=== PATIENT | male | born 1945 | race Caucasian/White ===

== ENCOUNTER → 2016-06-16 | Outpatient (CLI) | payer MEDICARE, MEDICAID ==
[~2016-06-16] MED LIST: OMEP40CA34 PO
== END | disposition home or self-care (01) ==
LOC: RAD 11:34
PROVIDERS: ATTEND Neurological Surgery
DX: Z01.818 Encounter for other preprocedural examination (principal); M48.02 Spinal stenosis, cervical region; G95.89 Other specified diseases of spinal cord; G82.50 Quadriplegia, unspecified; J98.11 Atelectasis
CPT/HCPCS: 71010

== ENCOUNTER 2016-06-26 05:59 | Inpatient (IN) | payer MEDICARE, MEDICAID ==
[2016-06-26] VITALS (24 sets, daily range): BP systolic 59–180; BP diastolic 46–96
[~2016-06-26] VITALS: Ht 177.8 cm; Wt 110.2 kg
[2016-06-26] MEDS ORDERED: NORMAL SALINE 0.9% 10 ML SYR ONE ×2 (06:23→10:43)
[2016-06-26] MEDS ORDERED: GELATIN SPONGE,ABSORBABLE SZ 100 ONE ×3 (06:23→12:50)
[2016-06-26] MEDS ORDERED: THROMBIN (BOVINE) 5000 UNITS/VIAL TOP ONE ×2 (06:24→10:43)
[2016-06-26] MEDS ORDERED: LIDOCAINE HCL/EPINEPHRINE 0.5%-EPI 1:200,000 50 ML VIAL INFIL ONE ×2 (06:24→10:44)
[2016-06-26] MEDS ORDERED: BACITRACIN 50,000 UNITS/VIAL ONE ×2 (06:25→10:44)
[2016-06-26] MEDS ORDERED: LACTATED RINGERS 1,000 ML IV SCH (07:45)
[2016-06-26 08:33] LABS: GLUCOSE URINE NEGATIVE (NEGATIVE); KETONES URINE NEGATIVE (NEGATIVE); LEUKOCYTE ESTERASE URINE NEGATIVE (NEGATIVE); NITRITE URINE NEGATIVE (NEGATIVE); OCCULT BLOOD URINE NEGATIVE (NEGATIVE); PH URINE 5.5 (4.5-8.0); PROTEIN URINE NEGATIVE (NEGATIVE); SPECIFIC GRAVITY URINE 1.015 (1.005-1.030); UROBILINOGEN URINE 0.2 E.U./dL (0.2-1.0)
[2016-06-26 08:35] LABS: CLARITY URINE CLEAR (CLEAR); COLOR URINE YELLOW (YELLOW)
[2016-06-26 09:16] LABS: PARTIAL THROMBOPLASTIN TIME 29.4 sec (24.0-34.0); PROTHROMBIN TIME 10.6 sec
[2016-06-26] MEDS ORDERED: IPRATROPIUM/ALBUTEROL 0.5-3(2.5)MG/3ML NEB INH PRN (10:45)
[2016-06-26] MEDS ORDERED: DIPHENHYDRAMINE 50MG/ML VIAL IV PRN (10:45)
[2016-06-26] MEDS ORDERED: ONDANSETRON HCL 4MG/2ML VIAL IV PRN ×2 (10:45→12:15)
[2016-06-26] MEDS ORDERED: CLONIDINE 0.1MG TABLET PO PRN (10:45)
[2016-06-26] MEDS ORDERED: RIVA20TA PO (10:56)
[2016-06-26] MEDS ORDERED: FURO20TA4 PO (10:56)
[2016-06-26] MEDS ORDERED: DOXA4TAB3 PO (10:56)
[2016-06-26] MEDS ORDERED: SUCCINYLCHOLINE CHLORIDE 200MG/10ML VIAL IV ONE (11:37)
[2016-06-26] MEDS ORDERED: PROPOFOL 200MG/20ML VIAL IV ONE (11:37)
[2016-06-26] MEDS ORDERED: ROCURONIUM BROMIDE 10MG/ML VIAL 5ML IV ONE (11:37)
[2016-06-26] MEDS ORDERED: HYDROMORPHONE HCL/PF 2MG/ML (OR) ONE (11:49)
[2016-06-26] MEDS ORDERED: LABETALOL HCL 5MG/ML VIAL 20ML IV ONE (11:51)
[2016-06-26] MEDS ORDERED: DEXAMETHASONE 4MG/ML 1ML VIAL IV SCH (12:00)
[2016-06-26] MEDS ORDERED: LABETALOL HCL 20MG/4ML CARPUJECT IV PRN (12:15)
[2016-06-26] MEDS ORDERED: HYDROMORPHONE HCL/PF 2MG/ML CPJ IV PRN (12:15)
[2016-06-26] MEDS ORDERED: MEPERIDINE HCL/PF 25MG/ML CPJ IV PRN (12:15)
[2016-06-26] MEDS ORDERED: GLYCOPYRROLATE 0.2 MG/ML 2ML VIAL ONE (13:12)
[2016-06-26] MEDS ORDERED: NEOSTIGMINE METHYLSULFATE 1MG/ML 10 ML VIAL ONE (13:12)
[2016-06-26] MEDS ORDERED: CEFAZOLIN SODIUM 1000MG/VIAL IV SCH (14:00)
[2016-06-26] MEDS: MORPHINE SULFATE 2 MG/ML CPJ (NOT FOR IM USE) IV PRN (14:08)
[2016-06-26] MEDS ORDERED: ONDANSETRON INJ IV PRN (14:45)
[2016-06-26] MEDS ORDERED: NALOXONE INJ IV PRN (14:45)
[2016-06-26] MEDS ORDERED: DIPHENHYDRAMINE INJ IV PRN (14:45)
[2016-06-26] MEDS: HYDROMORPHONE PCA 10MG/50ML IV PRN (15:01)
[2016-06-26] MEDS ORDERED: DEXT 5%/LACTATED RINGERS 1,000 ML IV SCH (17:00)
[2016-06-26] MEDS ORDERED: PANTOPRAZOLE SODIUM 40 MG/VIAL IV NR (17:30)
[2016-06-26] MEDS: DEXAMETHASONE 4MG/ML 1ML VIAL IV SCH (17:53)
[2016-06-26] MEDS: CEFAZOLIN 1000MG PREMIX 50 ML IV SCH (22:39)
[2016-06-27] VITALS (46 sets, daily range): BP systolic 114–166; BP diastolic 50–99
[2016-06-27] MEDS: DEXAMETHASONE 4MG/ML 1ML VIAL IV SCH ×3 (00:52→12:50)
[2016-06-27] MEDS: HYDROMORPHONE PCA 10MG/50ML IV PRN (05:33)
[2016-06-27 05:42] LABS: HEMATOCRIT. 43.5 % (42.0-52.0); HEMOGLOBIN. 14.9 g/dL (14.0-18.0); MEAN CORPUSCULAR HEMOGLOBIN 32.8 pg (28.0-32.0); MEAN CORPUSCULAR HGB CONC 34.2 g/dL (31.0-37.0); MEAN CORPUSCULAR VOLUME 95.9 fL (80.0-94.0); MEAN PLATELET VOLUME 8.5 fl (7.4-10.4); PLATELET 206 x1000/uL (130-400); RED BLOOD CELL COUNT 4.53 mill/uL (4.7-6.1); RED CELL DISTRIBUTION WIDTH 13.8 % (11.6-14.6); WHITE BLOOD COUNT 17.8 x1000/uL (4.5-11.0)
[2016-06-27 05:49] LABS: DIFFERENTIAL COMMENT 1
[2016-06-27 06:01] LABS: ANION GAP 13; CALCIUM 8.1 mg/dL (8.5-10.1); CARBON DIOXIDE 25 mEq/L (21-32); CHLORIDE 105 mEq/L (98-107); INDEX HEMOLYSI 2 (1-3); INDEX ICTERIC 1 (1-4); INDEX LIPEMIC 1 (1-3); UREA NITROGEN BLOOD 20 mg/dL (7-21); eGFR > 60 mL/min (>60)
[2016-06-27] MEDS: CEFAZOLIN 1000MG PREMIX 50 ML IV SCH ×2 (06:10→12:50)
[2016-06-27] MEDS: PANTOPRAZOLE SODIUM 40 MG/VIAL IV SCH (09:04)
[2016-06-27 11:00] LABS: PLATELET ESTIMATE NORMAL; TOXIC VACUOLATION NN
[2016-06-27 11:42] LABS: HEMATOCRIT. 43.6 % (42.0-52.0); HEMOGLOBIN. 14.7 g/dL (14.0-18.0); MEAN CORPUSCULAR HEMOGLOBIN 32.4 pg (28.0-32.0); MEAN CORPUSCULAR HGB CONC 33.8 g/dL (31.0-37.0); MEAN CORPUSCULAR VOLUME 95.7 fL (80.0-94.0); MEAN PLATELET VOLUME 8.1 fl (7.4-10.4); PLATELET 216 x1000/uL (130-400); RED BLOOD CELL COUNT 4.55 mill/uL (4.7-6.1); WHITE BLOOD COUNT 18.4 x1000/uL (4.5-11.0)
[2016-06-27 11:44] LABS: DIFFERENTIAL COMMENT 1
[2016-06-27 12:09] LABS: ANION GAP 14; CALCIUM 8.3 mg/dL (8.5-10.1); CARBON DIOXIDE 26 mEq/L (21-32); CHLORIDE 105 mEq/L (98-107); INDEX HEMOLYSI 1 (1-3); INDEX ICTERIC 1 (1-4); INDEX LIPEMIC 1 (1-3); UREA NITROGEN BLOOD 17 mg/dL (7-21); eGFR > 60 mL/min (>60)
[2016-06-27 13:31] LABS: PLATELET ESTIMATE NORMAL
[2016-06-27] MEDS: AMIODARONE HCL 200 MG TABLET PO SCH (15:11)
[2016-06-27] MEDS ORDERED: LORAZEPAM 2MG/ML CPJ IV PRN (16:30)
[2016-06-27] MEDS ORDERED: DEXTROSE 50% WATER 50ML SYRINGE IV PRN (18:45)
[2016-06-27] MEDS: HYDROMORPHONE HCL/PF 2MG/ML CPJ IV PRN (19:22)
[2016-06-27] MEDS: BLOOD SUGAR DIAGNOSTIC STRIP TEST SCH (21:00)
[2016-06-27] MEDS: DILTIAZEM HCL 60MG TABLET PO SCH (22:44)
[2016-06-27] MEDS: INSULIN LISPRO 100 UNITS/ML SUBCUT SCH (22:44)
[2016-06-28] VITALS (44 sets, daily range): BP systolic 114–203; BP diastolic 51–97
[2016-06-28] MEDS: ACETAMINOPHEN 325MG TABLET PO PRN ×3 (02:44→15:50)
[2016-06-28] MEDS: BLOOD SUGAR DIAGNOSTIC STRIP TEST SCH ×4 (06:11→21:17)
[2016-06-28] MEDS: INSULIN LISPRO 100 UNITS/ML SUBCUT SCH ×4 (06:53→21:23)
[2016-06-28] MEDS: DILTIAZEM HCL 60MG TABLET PO SCH ×3 (07:20→21:18)
[2016-06-28] MEDS: PANTOPRAZOLE SODIUM 40 MG/VIAL IV SCH (09:10)
[2016-06-28] MEDS: AMIODARONE HCL 200 MG TABLET PO SCH (09:10)
[2016-06-28] MEDS: MORPHINE SULFATE 2 MG/ML CPJ (NOT FOR IM USE) IV PRN (19:06)
[2016-06-29] VITALS (7 sets, daily range): BP systolic 115–138; BP diastolic 65–73
[2016-06-29] MEDS: DILTIAZEM HCL 60MG TABLET PO SCH ×2 (05:37→14:00)
[2016-06-29] MEDS: HYDROCODONE/ACETAMINOPHEN 10/325MG TABLET PO PRN ×3 (05:45→19:29)
[2016-06-29] MEDS: BLOOD SUGAR DIAGNOSTIC STRIP TEST SCH ×3 (05:46→17:40)
[2016-06-29] MEDS: INSULIN LISPRO 100 UNITS/ML SUBCUT SCH ×3 (07:52→18:33)
[2016-06-29] MEDS: AMIODARONE HCL 200 MG TABLET PO SCH (09:00)
[2016-06-29] MEDS: PANTOPRAZOLE SODIUM 40 MG/VIAL IV SCH (09:20)
[2016-06-29] MEDS: HYDROMORPHONE HCL/PF 2MG/ML CPJ IV PRN (10:17)
[2016-06-30] MEDS ORDERED: AMIODARONE HCL 200 MG TABLET PO SCH (09:00)
== END 2016-06-29 20:10 | DRG 471 ==
LOC: OR 05:59 → MICUSO 06:00 → 7WST 06-28 22:45
PROVIDERS: ADMIT Internal Medicine; ATTEND Internal Medicine
PROC: 01N10ZZ Release Cervical Nerve, Open Approach (ICD-10-PCS; 2016-06-26)
PROC: 00NW0ZZ Release Cervical Spinal Cord, Open Approach (ICD-10-PCS; 2016-06-26)
PROC: 0RG2071 Fusion of 2 or more Cervical Vertebral Joints with Autologous Tissue Substitute, Posterior Approach, Posterior Column, Open Approach (ICD-10-PCS; principal; 2016-06-26 11:00)
DX: M48.02 Spinal stenosis, cervical region (principal); G82.50 Quadriplegia, unspecified; G95.9 Disease of spinal cord, unspecified; J84.9 Interstitial pulmonary disease, unspecified; G95.20 Unspecified cord compression; E11.9 Type 2 diabetes mellitus without complications; E66.9 Obesity, unspecified; I10 Essential (primary) hypertension; I48.0 Paroxysmal atrial fibrillation; I48.2 Chronic atrial fibrillation; K21.9 Gastro-esophageal reflux disease without esophagitis; K59.09 Other constipation; K64.9 Unspecified hemorrhoids; R26.9 Unspecified abnormalities of gait and mobility; R35.1 Nocturia; R45.1 Restlessness and agitation; M54.5 Low back pain; Z87.891 Personal history of nicotine dependence; Z79.2 Long term (current) use of antibiotics; Z79.899 Other long term (current) drug therapy; Z98.49 Cataract extraction status, unspecified eye; Z90.49 Acquired absence of other specified parts of digestive tract; Z90.79 Acquired absence of other genital organ(s)
CPT/HCPCS: 36415; 71010; 72040; 80048; 81003; 82962; 83036; 85025; 85610; 85730; 86850; 86900; 87040; 88304; 88311; 93005; 97116; 97162; 97166; 97530; A4216; C9113; J0330; J0690; J1100; J1170; J1200; J1815; J2270; J2704; J2710; J3490; J7120; J7121; L0172; A4315

== ENCOUNTER 2016-06-29 20:19 | Inpatient (IN) | payer MEDICARE, MEDICAID ==
[~2016-06-29] VITALS: Ht 177.8 cm; Wt 111.6 kg
[2016-06-29 20:00] VITALS: BP 120/69
[~2016-06-29 20:19] MED LIST changes: +DOXA4TAB3 PO; +FURO20TA4 PO; +RIVA20TA PO
[2016-06-29] MEDS ORDERED: DEXTROSE 50% WATER 50ML SYRINGE IV PRN (20:45)
[2016-06-29] MEDS ORDERED: CLONIDINE 0.1MG TABLET PO PRN (20:45)
[2016-06-29] MEDS ORDERED: ACETAMINOPHEN 325MG TABLET PO PRN (20:45)
[2016-06-29 21:00] VITALS: BP 120/69
[2016-06-29] MEDS: INSULIN LISPRO 100 UNITS/ML SUBCUT SCH (21:00)
[2016-06-29] MEDS: BLOOD SUGAR DIAGNOSTIC STRIP TEST SCH (21:42)
[2016-06-29] MEDS: DILTIAZEM HCL 60MG TABLET PO SCH (22:00)
[2016-06-29] MEDS ORDERED: DIPHENHYDRAMINE 50MG/ML VIAL IV PRN (22:15)
[2016-06-29] MEDS ORDERED: LORAZEPAM 2MG/ML CPJ IV PRN (22:15)
[2016-06-29] MEDS ORDERED: ONDANSETRON HCL 4MG/2ML VIAL IV PRN (22:15)
[2016-06-29] MEDS ORDERED: HYDROMORPHONE HCL/PF 2MG/ML CPJ IV PRN (22:15)
[2016-06-29] MEDS ORDERED: MORPHINE SULFATE 2 MG/ML CPJ (NOT FOR IM USE) IV PRN (22:15)
[2016-06-30] MEDS ORDERED: IPRATROPIUM/ALBUTEROL 0.5-3(2.5)MG/3ML NEB HHN SCH
[2016-06-30] MEDS ORDERED: IPRATROPIUM/ALBUTEROL 0.5-3(2.5)MG/3ML NEB HHN PRN (02:15)
[2016-06-30] MEDS: BLOOD SUGAR DIAGNOSTIC STRIP TEST SCH ×4 (06:44→21:33)
[2016-06-30] MEDS: DILTIAZEM HCL 60MG TABLET PO SCH ×3 (06:44→21:34)
[2016-06-30] MEDS: INSULIN LISPRO 100 UNITS/ML SUBCUT SCH ×4 (06:44→21:35)
[2016-06-30] MEDS: HYDROCODONE/ACETAMINOPHEN 10/325MG TABLET PO PRN ×2 (06:53→13:16)
[2016-06-30 08:00] VITALS: BP 136/85
[2016-06-30] MEDS: AMIODARONE HCL 200 MG TABLET PO SCH (08:21)
[2016-06-30] MEDS ORDERED: PANTOPRAZOLE SODIUM 40 MG/VIAL IV SCH (09:00)
[2016-06-30] MEDS: MAGNESIUM HYDROXIDE 400MG/5ML 30ML UDC PO PRN (10:56)
[2016-06-30] MEDS: DOCUSATE SODIUM 250MG CAPSULE PO SCH ×2 (10:56→16:53)
[2016-06-30] MEDS ORDERED: LIDOCAINE 5% PATCH TOP SCH (15:45)
[2016-06-30] MEDS: PANTOPRAZOLE 40MG DR TABLET PO SCH (15:45)
[2016-06-30] MEDS: LIDOCAINE 5% PATCH TOP SCH (16:54)
[2016-06-30 20:00] VITALS: BP 145/73
[2016-06-30] MEDS: BACLOFEN 10MG TABLET PO SCH (21:34)
[2016-07-01] MEDS: DILTIAZEM HCL 60MG TABLET PO SCH ×3 (06:00→21:34)
[2016-07-01] MEDS: BACLOFEN 10MG TABLET PO SCH ×3 (06:22→21:34)
[2016-07-01] MEDS: PANTOPRAZOLE 40MG DR TABLET PO SCH (06:22)
[2016-07-01] MEDS: HYDROCODONE/ACETAMINOPHEN 10/325MG TABLET PO PRN ×2 (06:26→13:14)
[2016-07-01 06:28] LABS: BASOPHILS % 0.5 % (0.0-2.0); EOSINOPHILS % 4.6 % (0.0-5.0); HEMATOCRIT. 41.8 % (42.0-52.0); HEMOGLOBIN. 14.4 g/dL (14.0-18.0); LYMPHOCYTES % 35.7 % (20.0-50.0); MEAN CORPUSCULAR HEMOGLOBIN 32.8 pg (28.0-32.0); MEAN CORPUSCULAR HGB CONC 34.4 g/dL (31.0-37.0); MEAN CORPUSCULAR VOLUME 95.1 fL (80.0-94.0); MEAN PLATELET VOLUME 7.8 fl (7.4-10.4); MONOCYTES % 8.6 % (2.0-8.0); NEUTROPHILS % 50.6 % (40.0-76.0); PLATELET 232 x1000/uL (130-400); RED BLOOD CELL COUNT 4.39 mill/uL (4.7-6.1); RED CELL DISTRIBUTION WIDTH 13.7 % (11.6-14.6); WHITE BLOOD COUNT 7.8 x1000/uL (4.5-11.0)
[2016-07-01] MEDS: BLOOD SUGAR DIAGNOSTIC STRIP TEST SCH ×4 (06:32→16:53)
[2016-07-01] MEDS: INSULIN LISPRO 100 UNITS/ML SUBCUT SCH ×4 (06:33→21:41)
[2016-07-01 07:09] LABS: ALANINE AMINOTRANSFERASE 42 IU/L (13-61); ALBUMIN 3.2 g/dL (3.4-5.0); ANION GAP 11; CALCIUM 8.3 mg/dL (8.5-10.1); CARBON DIOXIDE 27 mEq/L (21-32); CHLORIDE 104 mEq/L (98-107); INDEX HEMOLYSI 1 (1-3); INDEX ICTERIC 1 (1-4); INDEX LIPEMIC 1 (1-3); MAGNESIUM 2.2 mg/dL (1.8-2.4); PHOSPHORUS 2.9 mg/dL (2.5-4.9); UREA NITROGEN BLOOD 14 mg/dL (7-21); eGFR > 60 mL/min (>60)
[2016-07-01 07:59] VITALS: BP 140/63
[2016-07-01 08:00] VITALS: BP 125/78
[2016-07-01] MEDS: AMIODARONE HCL 200 MG TABLET PO SCH (08:02)
[2016-07-01] MEDS: DOCUSATE SODIUM 250MG CAPSULE PO SCH ×2 (08:02→16:50)
[2016-07-01] MEDS: LIDOCAINE 5% PATCH TOP SCH (08:03)
[2016-07-01 20:00] VITALS: BP 122/66
[2016-07-01] MEDS: RIVAROXABAN 20 MG TABLET PO SCH (21:33)
[2016-07-01] MEDS: GABAPENTIN 100MG CAPSULE PO SCH (21:33)
[2016-07-02] MEDS: DILTIAZEM HCL 60MG TABLET PO SCH ×3 (06:00→21:35)
[2016-07-02] MEDS: PANTOPRAZOLE 40MG DR TABLET PO SCH (06:37)
[2016-07-02] MEDS: BACLOFEN 10MG TABLET PO SCH ×3 (06:37→21:36)
[2016-07-02] MEDS: GABAPENTIN 100MG CAPSULE PO SCH ×3 (06:37→21:35)
[2016-07-02] MEDS: BLOOD SUGAR DIAGNOSTIC STRIP TEST SCH ×4 (06:37→21:34)
[2016-07-02] MEDS: INSULIN LISPRO 100 UNITS/ML SUBCUT SCH ×4 (06:38→21:00)
[2016-07-02 08:00] VITALS: BP 128/70
[2016-07-02] MEDS: AMIODARONE HCL 200 MG TABLET PO SCH (08:05)
[2016-07-02] MEDS: DOCUSATE SODIUM 250MG CAPSULE PO SCH ×2 (08:05→16:07)
[2016-07-02] MEDS: HYDROCODONE/ACETAMINOPHEN 10/325MG TABLET PO PRN ×2 (08:06→12:05)
[2016-07-02] MEDS: LIDOCAINE 5% PATCH TOP SCH (08:06)
[2016-07-02] MEDS: MAGNESIUM HYDROXIDE 400MG/5ML 30ML UDC PO PRN (13:47)
[2016-07-02] MEDS: RIVAROXABAN 20 MG TABLET PO SCH (16:07)
[2016-07-02 20:22] VITALS: BP 143/81
[2016-07-03] MEDS: DILTIAZEM HCL 60MG TABLET PO SCH ×3 (06:00→21:19)
[2016-07-03] MEDS: GABAPENTIN 100MG CAPSULE PO SCH ×3 (06:18→21:18)
[2016-07-03] MEDS: BACLOFEN 10MG TABLET PO SCH ×3 (06:18→21:18)
[2016-07-03] MEDS: BLOOD SUGAR DIAGNOSTIC STRIP TEST SCH ×4 (06:19→21:19)
[2016-07-03] MEDS: PANTOPRAZOLE 40MG DR TABLET PO SCH (06:20)
[2016-07-03] MEDS: INSULIN LISPRO 100 UNITS/ML SUBCUT SCH ×4 (06:20→21:25)
[2016-07-03 08:00] VITALS: BP 119/58
[2016-07-03] MEDS: DOCUSATE SODIUM 250MG CAPSULE PO SCH ×2 (08:15→16:46)
[2016-07-03] MEDS: AMIODARONE HCL 200 MG TABLET PO SCH (08:15)
[2016-07-03] MEDS: LIDOCAINE 5% PATCH TOP SCH (08:17)
[2016-07-03] MEDS: HYDROCODONE/ACETAMINOPHEN 10/325MG TABLET PO PRN (08:49)
[2016-07-03] MEDS ORDERED: HYDROCODONE/APAP 7.5/325MG 1 TAB TABLET PO PRN (09:15)
[2016-07-03] MEDS ORDERED: IPRATROPIUM/ALBUTEROL 0.5-3(2.5)MG/3ML NEB HHN PRN (09:15)
[2016-07-03 11:31] LABS: BASOPHILS % 0.5 % (0.0-2.0); EOSINOPHILS % 1.7 % (0.0-5.0); HEMATOCRIT. 43.3 % (42.0-52.0); LYMPHOCYTES % 28.3 % (20.0-50.0); MEAN CORPUSCULAR HEMOGLOBIN 32.8 pg (28.0-32.0); MEAN CORPUSCULAR HGB CONC 34.7 g/dL (31.0-37.0); MEAN CORPUSCULAR VOLUME 94.6 fL (80.0-94.0); MONOCYTES % 7.8 % (2.0-8.0); NEUTROPHILS % 61.7 % (40.0-76.0); PLATELET 237 x1000/uL (130-400); RED BLOOD CELL COUNT 4.57 mill/uL (4.7-6.1); RED CELL DISTRIBUTION WIDTH 13.6 % (11.6-14.6); WHITE BLOOD COUNT 8.2 x1000/uL (4.5-11.0)
[2016-07-03 11:42] LABS: ANION GAP 11; CALCIUM 8.7 mg/dL (8.5-10.1); CARBON DIOXIDE 28 mEq/L (21-32); CHLORIDE 101 mEq/L (98-107); INDEX HEMOLYSI 1 (1-3); INDEX ICTERIC 1 (1-4); INDEX LIPEMIC 1 (1-3); UREA NITROGEN BLOOD 17 mg/dL (7-21); eGFR > 60 mL/min (>60)
[2016-07-03] MEDS: MAGNESIUM HYDROXIDE 400MG/5ML 30ML UDC PO PRN (16:46)
[2016-07-03] MEDS: RIVAROXABAN 20 MG TABLET PO SCH (16:46)
[2016-07-03 20:00] VITALS: BP 139/85
[2016-07-03] MEDS ORDERED: LACTULOSE 20G/30ML UDC PO PRN (21:00)
[2016-07-04] MEDS: IPRATROPIUM/ALBUTEROL 0.5-3(2.5)MG/3ML NEB HHN SCH ×4 (01:29→20:58)
[2016-07-04] MEDS: GABAPENTIN 100MG CAPSULE PO SCH ×3 (06:39→21:11)
[2016-07-04] MEDS: DILTIAZEM HCL 60MG TABLET PO SCH ×3 (06:39→21:11)
[2016-07-04] MEDS: BACLOFEN 10MG TABLET PO SCH ×3 (06:39→21:11)
[2016-07-04] MEDS: MAGNESIUM HYDROXIDE 400MG/5ML 30ML UDC PO PRN (06:40)
[2016-07-04] MEDS: INSULIN LISPRO 100 UNITS/ML SUBCUT SCH ×4 (06:41→21:21)
[2016-07-04] MEDS: BLOOD SUGAR DIAGNOSTIC STRIP TEST SCH ×4 (06:41→21:11)
[2016-07-04] MEDS: BUDESONIDE 0.5MG/2ML NEB HHN SCH ×2 (07:33→20:58)
[2016-07-04 08:00] VITALS: BP 127/67
[2016-07-04] MEDS: DOCUSATE SODIUM 250MG CAPSULE PO SCH ×2 (08:08→16:41)
[2016-07-04] MEDS: LIDOCAINE 5% PATCH TOP SCH (08:08)
[2016-07-04] MEDS: FAMOTIDINE 20MG TABLET PO SCH ×2 (08:08→21:10)
[2016-07-04] MEDS: AMIODARONE HCL 200 MG TABLET PO SCH (08:12)
[2016-07-04] MEDS ORDERED: NA PHOS,M-B/NA PHOS,DI-BA ENEMA 118ML PR NR (12:00)
[2016-07-04] MEDS: RIVAROXABAN 20 MG TABLET PO SCH (16:41)
[2016-07-04 20:00] VITALS: BP 128/66
[2016-07-04] MEDS ORDERED: HYDROCODONE/ACETAMINOPHEN 10/325MG TABLET PO PRN (20:15)
[2016-07-04] MEDS ORDERED: HYDROCODONE/APAP 7.5/325MG 1 TAB TABLET PO PRN (20:15)
[2016-07-05] MEDS: IPRATROPIUM/ALBUTEROL 0.5-3(2.5)MG/3ML NEB HHN SCH ×4 (00:46→21:40)
[2016-07-05] MEDS: BACLOFEN 10MG TABLET PO SCH ×3 (05:22→22:03)
[2016-07-05] MEDS: GABAPENTIN 100MG CAPSULE PO SCH ×3 (05:22→22:03)
[2016-07-05] MEDS: DILTIAZEM HCL 60MG TABLET PO SCH ×3 (05:22→22:00)
[2016-07-05] MEDS: BLOOD SUGAR DIAGNOSTIC STRIP TEST SCH ×4 (06:24→21:00)
[2016-07-05] MEDS: INSULIN LISPRO 100 UNITS/ML SUBCUT SCH ×4 (06:46→22:17)
[2016-07-05] MEDS: BUDESONIDE 0.5MG/2ML NEB HHN SCH ×2 (07:57→21:40)
[2016-07-05 08:00] VITALS: BP 116/61
[2016-07-05] MEDS: FAMOTIDINE 20MG TABLET PO SCH ×2 (08:55→22:03)
[2016-07-05] MEDS: AMIODARONE HCL 200 MG TABLET PO SCH (08:55)
[2016-07-05] MEDS: DOCUSATE SODIUM 250MG CAPSULE PO SCH ×2 (08:55→17:05)
[2016-07-05] MEDS: LIDOCAINE 5% PATCH TOP SCH (08:56)
[2016-07-05] MEDS: RIVAROXABAN 20 MG TABLET PO SCH (17:05)
[2016-07-05 20:00] VITALS: BP 123/73
[2016-07-06] MEDS: IPRATROPIUM/ALBUTEROL 0.5-3(2.5)MG/3ML NEB HHN SCH ×4 (01:52→21:16)
[2016-07-06] MEDS: BACLOFEN 10MG TABLET PO SCH ×3 (05:51→21:27)
[2016-07-06] MEDS: GABAPENTIN 100MG CAPSULE PO SCH ×3 (05:51→21:27)
[2016-07-06] MEDS: DILTIAZEM HCL 60MG TABLET PO SCH ×3 (05:53→21:29)
[2016-07-06] MEDS: BLOOD SUGAR DIAGNOSTIC STRIP TEST SCH ×4 (05:54→20:56)
[2016-07-06] MEDS: INSULIN LISPRO 100 UNITS/ML SUBCUT SCH ×4 (06:46→21:28)
[2016-07-06] MEDS: BUDESONIDE 0.5MG/2ML NEB HHN SCH ×2 (07:38→21:15)
[2016-07-06 08:00] VITALS: BP 117/63
[2016-07-06] MEDS: LIDOCAINE 5% PATCH TOP SCH (08:26)
[2016-07-06] MEDS: FAMOTIDINE 20MG TABLET PO SCH ×2 (08:26→21:27)
[2016-07-06] MEDS: AMIODARONE HCL 200 MG TABLET PO SCH (08:26)
[2016-07-06] MEDS: DOCUSATE SODIUM 250MG CAPSULE PO SCH ×2 (08:26→17:55)
[2016-07-06] MEDS: MAGNESIUM HYDROXIDE 400MG/5ML 30ML UDC PO PRN (08:31)
[2016-07-06] MEDS ORDERED: BUDESONIDE 0.5MG/2ML NEB HHN SCH (09:00)
[2016-07-06 12:30] VITALS: BP 117/73
[2016-07-06] MEDS ORDERED: BISACODYL 5MG TABLET PO PRN (15:00)
[2016-07-06] MEDS: RIVAROXABAN 20 MG TABLET PO SCH (17:55)
[2016-07-06] MEDS ORDERED: LACTULOSE 20G/30ML UDC PO NR (18:30)
[2016-07-06 20:00] VITALS: BP 145/90
[2016-07-07] MEDS: IPRATROPIUM/ALBUTEROL 0.5-3(2.5)MG/3ML NEB HHN SCH ×3 (01:26→15:20)
[2016-07-07] MEDS: BACLOFEN 10MG TABLET PO SCH ×2 (05:33→13:06)
[2016-07-07] MEDS: GABAPENTIN 100MG CAPSULE PO SCH ×2 (05:33→13:06)
[2016-07-07] MEDS: DILTIAZEM HCL 60MG TABLET PO SCH ×2 (05:34→13:06)
[2016-07-07] MEDS: BLOOD SUGAR DIAGNOSTIC STRIP TEST SCH ×2 (06:23→11:15)
[2016-07-07] MEDS: INSULIN LISPRO 100 UNITS/ML SUBCUT SCH ×2 (07:32→13:07)
[2016-07-07 08:00] VITALS: BP 102/57
[2016-07-07] MEDS: DOCUSATE SODIUM 250MG CAPSULE PO SCH (08:17)
[2016-07-07] MEDS: AMIODARONE HCL 200 MG TABLET PO SCH (08:17)
[2016-07-07] MEDS: FAMOTIDINE 20MG TABLET PO SCH (08:17)
[2016-07-07] MEDS: LIDOCAINE 5% PATCH TOP SCH (08:20)
[2016-07-07] MEDS: BUDESONIDE 0.5MG/2ML NEB HHN SCH (10:01)
[2016-07-07 14:33] VITALS: BP 122/68
== END 2016-07-07 15:35 | disposition home health service (06) | DRG 552 ==
PROVIDERS: ADMIT Psychiatry & Neurology Neurology; ATTEND Internal Medicine
DX: M48.02 Spinal stenosis, cervical region (principal); G95.29 Other cord compression; I48.0 Paroxysmal atrial fibrillation; H91.90 Unspecified hearing loss, unspecified ear; K21.9 Gastro-esophageal reflux disease without esophagitis; I10 Essential (primary) hypertension; E11.9 Type 2 diabetes mellitus without complications; E66.9 Obesity, unspecified; F17.200 Nicotine dependence, unspecified, uncomplicated; M54.16 Radiculopathy, lumbar region; J44.9 Chronic obstructive pulmonary disease, unspecified; K59.09 Other constipation; K64.9 Unspecified hemorrhoids; M48.06 Spinal stenosis, lumbar region; R26.9 Unspecified abnormalities of gait and mobility; Z68.35 Body mass index [BMI] 35.0-35.9, adult; Z87.01 Personal history of pneumonia (recurrent); Z90.49 Acquired absence of other specified parts of digestive tract
CPT/HCPCS: 36415; 80048; 80053; 82962; 83735; 84100; 85025; 93970; 94640; 94664; 97110; 97116; 97162; 97166; 97530; 97535; C9113; J1815; J7620; J7626

== ENCOUNTER 2016-08-18 09:21 | Inpatient (IN) | payer MEDICARE, MEDICAID ==
[~2016-08-18] VITALS: Ht 185.4 cm; Wt 100.7 kg
[~2016-08-18 09:21] MED LIST changes: -DOXA4TAB3 PO; -FURO20TA4 PO; -OMEP40CA34 PO
[2016-08-18 10:18] LABS: EOSINOPHILS % 0.9 % (0.0-5.0); HEMATOCRIT. 37.2 % (42.0-52.0); HEMOGLOBIN. 12.9 g/dL (14.0-18.0); LYMPHOCYTES % 19.8 % (20.0-50.0); MEAN CORPUSCULAR HEMOGLOBIN 32.4 pg (28.0-32.0); MEAN CORPUSCULAR VOLUME 93.8 fL (80.0-94.0); MEAN PLATELET VOLUME 7.4 fl (7.4-10.4); MONOCYTES % 5.7 % (2.0-8.0); NEUTROPHILS % 72.6 % (40.0-76.0); PLATELET 309 x1000/uL (130-400); RED BLOOD CELL COUNT 3.97 mill/uL (4.7-6.1); RED CELL DISTRIBUTION WIDTH 13.4 % (11.6-14.6)
[2016-08-18 10:31] LABS: D-DIMER 1.89 mg/L FEU (<0.50); INR 1.1; PARTIAL THROMBOPLASTIN TIME 34.1 sec (24.0-34.0); PROTHROMBIN TIME 11.3 sec
[2016-08-18 10:35] LABS: CARBON DIOXIDE 31 mEq/L (21-32); CHLORIDE 104 mEq/L (98-107); TROPONIN I < 0.02 ng/mL (0.00-0.04)
[2016-08-18] MEDS ORDERED: SODIUM CHLORIDE 0.9% 1000ML BAG (SEPSIS BOLUS) IV ONE (10:45)
[2016-08-18] MEDS ORDERED: PIPERACILLIN/TAZ 3.375G PREMIX 50 ML IV ONE (10:45)
[2016-08-18 11:12] LABS: CLARITY URINE CLEAR (CLEAR); COLOR URINE YELLOW (YELLOW); GLUCOSE URINE NEGATIVE (NEGATIVE); KETONES URINE NEGATIVE (NEGATIVE); LEUKOCYTE ESTERASE URINE NEGATIVE (NEGATIVE); NITRITE URINE NEGATIVE (NEGATIVE); OCCULT BLOOD URINE NEGATIVE (NEGATIVE); PH URINE 7.5 (4.5-8.0); PROTEIN URINE NEGATIVE (NEGATIVE); SPECIFIC GRAVITY URINE 1.015 (1.005-1.030)
[2016-08-18 12:45] VITALS: BP 136/78
[2016-08-18 13:00] VITALS: BP 136/78
[2016-08-18] MEDS ORDERED: TAMS0.4C31 PO (13:47)
[2016-08-18] MEDS ORDERED: AMIODARONE PO (13:54)
[2016-08-18] MEDS ORDERED: CARI350T27 PO (13:54)
[2016-08-18] MEDS ORDERED: DOXA4TAB3 PO (13:54)
[2016-08-18] MEDS ORDERED: TRAM50TA3 PO (13:54)
[2016-08-18] MEDS ORDERED: FAMO20TA8 PO (13:54)
[2016-08-18] MEDS ORDERED: FURO20TA4 PO (13:54)
[2016-08-18] MEDS ORDERED: RIVA20TA PO (13:54)
[2016-08-18] MEDS ORDERED: ACETAMINOPHEN 325MG TABLET PO PRN (14:45)
[2016-08-18] MEDS ORDERED: DIPHENHYDRAMINE 50MG/ML VIAL IV PRN (14:45)
[2016-08-18] MEDS ORDERED: ONDANSETRON HCL 4MG/2ML VIAL IV PRN (14:45)
[2016-08-18] MEDS ORDERED: IPRATROPIUM/ALBUTEROL 0.5-3(2.5)MG/3ML NEB INH PRN (14:45)
[2016-08-18] MEDS ORDERED: CLONIDINE 0.1MG TABLET PO PRN (14:45)
[2016-08-18] MEDS ORDERED: MAGNESIUM/ALUMINUM HYDROXIDE/SIMETHICONE 30ML UDC PO PRN (14:45)
[2016-08-18] MEDS: METHYLPREDNISOLONE SOD SUCC 40 MG/ML VIAL IV SCH ×2 (15:12→22:05)
[2016-08-18 16:27] VITALS: BP 143/87
[2016-08-18] MEDS: RIVAROXABAN 20 MG TABLET PO SCH (16:36)
[2016-08-18] MEDS: LEVOFLOXACIN 500MG PREMIX 100 ML IV SCH (16:36)
[2016-08-18] MEDS ORDERED: TRAMADOL 50MG TABLET PO SCH (17:00)
[2016-08-18] MEDS ORDERED: DEXTROSE 50% WATER 50ML SYRINGE IV PRN (19:45)
[2016-08-18] MEDS ORDERED: LORAZEPAM 1MG TABLET PO PRN (19:45)
[2016-08-18 20:00] VITALS: BP 123/69
[2016-08-18] MEDS: OMEPRAZOLE 20MG CAPSULE EXTENDED RELEASE PO SCH (20:28)
[2016-08-18] MEDS: BLOOD SUGAR DIAGNOSTIC STRIP TEST SCH (20:34)
[2016-08-18] MEDS: BUDESONIDE 0.5MG/2ML NEB HHN SCH (20:39)
[2016-08-18] MEDS: IPRATROPIUM/ALBUTEROL 0.5-3(2.5)MG/3ML NEB HHN SCH (20:39)
[2016-08-18] MEDS: DILTIAZEM HCL 60MG TABLET PO SCH (22:00)
[2016-08-18] MEDS: SODIUM CHLORIDE 0.9% INJ 3ML FLUSH IVF SCH (22:05)
[2016-08-18] MEDS: INSULIN LISPRO 100 UNITS/ML SUBCUT SCH (22:10)
[2016-08-18] MEDS: INSULIN DETEMIR UD 100 UNITS/ML SYR SUBCUT SCH (22:10)
[2016-08-19] VITALS: BP 130/78
[2016-08-19] MEDS: IPRATROPIUM/ALBUTEROL 0.5-3(2.5)MG/3ML NEB HHN SCH ×4 (00:43→20:17)
[2016-08-19 04:00] VITALS: BP 110/77
[2016-08-19] MEDS: METHYLPREDNISOLONE SOD SUCC 40 MG/ML VIAL IV SCH ×3 (05:56→21:11)
[2016-08-19] MEDS: SODIUM CHLORIDE 0.9% INJ 3ML FLUSH IVF SCH ×3 (05:57→21:11)
[2016-08-19] MEDS: BLOOD SUGAR DIAGNOSTIC STRIP TEST SCH ×4 (05:57→21:18)
[2016-08-19] MEDS: DILTIAZEM HCL 60MG TABLET PO SCH ×3 (05:57→21:11)
[2016-08-19] MEDS: METFORMIN HCL 500MG TABLET PO SCH ×2 (06:38→17:37)
[2016-08-19] MEDS: INSULIN LISPRO 100 UNITS/ML SUBCUT SCH ×4 (06:40→21:18)
[2016-08-19] MEDS: BUDESONIDE 0.5MG/2ML NEB HHN SCH ×2 (07:58→20:17)
[2016-08-19 08:00] VITALS: BP 132/67
[2016-08-19] MEDS: CARISOPRODOL 350 MG TABLET PO SCH (09:48)
[2016-08-19] MEDS: DOXAZOSIN MESYLATE 4MG TABLET PO SCH (09:48)
[2016-08-19] MEDS: FUROSEMIDE 20MG TABLET PO SCH (09:48)
[2016-08-19] MEDS: TAMSULOSIN HCL 0.4MG SR CAPSULE PO SCH (09:48)
[2016-08-19] MEDS: AMIODARONE HCL 200 MG TABLET PO SCH (09:48)
[2016-08-19 12:00] VITALS: BP 110/64
[2016-08-19 16:00] VITALS: BP 115/61
[2016-08-19] MEDS ORDERED: TRAMADOL 50MG TABLET PO PRN (17:00)
[2016-08-19] MEDS: LEVOFLOXACIN 500MG PREMIX 100 ML IV SCH (17:37)
[2016-08-19] MEDS: RIVAROXABAN 20 MG TABLET PO SCH (17:37)
[2016-08-19 20:00] VITALS: BP 116/60
[2016-08-19] MEDS: OMEPRAZOLE 20MG CAPSULE EXTENDED RELEASE PO SCH (21:11)
[2016-08-19] MEDS: INSULIN DETEMIR UD 100 UNITS/ML SYR SUBCUT SCH (21:18)
[2016-08-20] VITALS: BP 108/45
[2016-08-20] MEDS: IPRATROPIUM/ALBUTEROL 0.5-3(2.5)MG/3ML NEB HHN SCH ×3 (02:07→15:00)
[2016-08-20 04:00] VITALS: BP 116/67
[2016-08-20 05:55] LABS: HEMATOCRIT. 36.6 % (42.0-52.0); HEMOGLOBIN. 12.7 g/dL (14.0-18.0); MEAN CORPUSCULAR HEMOGLOBIN 32.5 pg (28.0-32.0); MEAN CORPUSCULAR VOLUME 93.7 fL (80.0-94.0); PLATELET 284 x1000/uL (130-400); RED BLOOD CELL COUNT 3.91 mill/uL (4.7-6.1); RED CELL DISTRIBUTION WIDTH 13.4 % (11.6-14.6)
[2016-08-20] MEDS: METHYLPREDNISOLONE SOD SUCC 40 MG/ML VIAL IV SCH ×2 (06:14→13:28)
[2016-08-20] MEDS: DILTIAZEM HCL 60MG TABLET PO SCH (06:14)
[2016-08-20] MEDS: BLOOD SUGAR DIAGNOSTIC STRIP TEST SCH ×2 (06:14→11:51)
[2016-08-20] MEDS: SODIUM CHLORIDE 0.9% INJ 3ML FLUSH IVF SCH ×2 (06:14→13:51)
[2016-08-20] MEDS: INSULIN LISPRO 100 UNITS/ML SUBCUT SCH ×2 (06:18→12:46)
[2016-08-20 06:27] LABS: CARBON DIOXIDE 27 mEq/L (21-32); CHLORIDE 104 mEq/L (98-107)
[2016-08-20 08:00] VITALS: BP 111/70
[2016-08-20 08:27] LABS: PLATELET ESTIMATE NORMAL
[2016-08-20] MEDS: FUROSEMIDE 20MG TABLET PO SCH (09:17)
[2016-08-20] MEDS: DOXAZOSIN MESYLATE 4MG TABLET PO SCH (09:17)
[2016-08-20] MEDS: CARISOPRODOL 350 MG TABLET PO SCH (09:17)
[2016-08-20] MEDS: METFORMIN HCL 500MG TABLET PO SCH (09:17)
[2016-08-20] MEDS: TAMSULOSIN HCL 0.4MG SR CAPSULE PO SCH (09:17)
[2016-08-20] MEDS: AMIODARONE HCL 200 MG TABLET PO SCH (09:17)
[2016-08-20] MEDS: BUDESONIDE 0.5MG/2ML NEB HHN SCH (09:25)
[2016-08-20 11:53] VITALS: BP 110/60
[2016-08-20 15:04] VITALS: BP 110/60
== END 2016-08-20 15:15 | disposition home or self-care (01) | DRG 189 ==
LOC: ER 10:13 → 5WST 11:05 → EDBEDREQ 11:12 → ENRESERV 11:42
PROVIDERS: ADMIT Internal Medicine; ATTEND Internal Medicine
DX: J96.00 Acute respiratory failure, unspecified whether with hypoxia or hypercapnia (principal); J18.9 Pneumonia, unspecified organism; J44.0 Chronic obstructive pulmonary disease with (acute) lower respiratory infection; J44.1 Chronic obstructive pulmonary disease with (acute) exacerbation; I48.0 Paroxysmal atrial fibrillation; I10 Essential (primary) hypertension; E11.9 Type 2 diabetes mellitus without complications; K21.9 Gastro-esophageal reflux disease without esophagitis; H43.393 Other vitreous opacities, bilateral; K59.09 Other constipation; K64.9 Unspecified hemorrhoids; Z79.899 Other long term (current) drug therapy; Z87.891 Personal history of nicotine dependence; Z82.49 Family history of ischemic heart disease and other diseases of the circulatory system
CPT/HCPCS: 36415; 71010; 80048; 80053; 81003; 82962; 83605; 83735; 83880; 84484; 85025; 85379; 85610; 85730; 87040; 93005; 94640; 94664; 96361; 96365; 99291; J1815; J1956; J2543; J2920; J7030; J7620; J7626

== ENCOUNTER 2016-08-24 21:02 | Emergency (ER) | payer MEDICARE, MEDICAID ==
[~2016-08-24] VITALS: Ht 175.3 cm; Wt 107.0 kg
[~2016-08-24 21:02] MED LIST changes: +AMIODARONE PO; +CARI350T27 PO; +DOXA4TAB3 PO; +FAMO20TA8 PO; +FURO20TA4 PO; +IOHEXOL-350 100 ML BOTTLE ONE; +SODIUM CHLORIDE 0.9% 10ML VIAL ONE; +TAMS0.4C31 PO; +TRAM50TA3 PO
[2016-08-24] MEDS ORDERED: SODIUM CHLORIDE 0.9% 1,000 ML IV ONE (22:00)
[2016-08-24 22:11] LABS: HEMATOCRIT. 40.3 % (42.0-52.0); HEMOGLOBIN. 13.8 g/dL (14.0-18.0); MEAN CORPUSCULAR VOLUME 93.2 fL (80.0-94.0); PLATELET 212 x1000/uL (130-400); RED BLOOD CELL COUNT 4.32 mill/uL (4.7-6.1); RED CELL DISTRIBUTION WIDTH 13.6 % (11.6-14.6)
[2016-08-24 22:18] LABS: INR 1.1; PROTHROMBIN TIME 10.9 sec
[2016-08-24 22:26] LABS: CARBON DIOXIDE 29 mEq/L (21-32); CHLORIDE 103 mEq/L (98-107); TROPONIN I < 0.02 ng/mL (0.00-0.04)
[2016-08-24 22:26] LABS: CLARITY URINE CLEAR (CLEAR); COLOR URINE YELLOW (YELLOW); KETONES URINE NEGATIVE (NEGATIVE); LEUKOCYTE ESTERASE URINE NEGATIVE (NEGATIVE); NITRITE URINE NEGATIVE (NEGATIVE); OCCULT BLOOD URINE NEGATIVE (NEGATIVE); PROTEIN URINE NEGATIVE (NEGATIVE); SPECIFIC GRAVITY URINE 1.006 (1.005-1.030); UROBILINOGEN URINE 0.2 E.U./dL (0.2-1.0)
[2016-08-24 22:36] LABS: ATYPICAL LYMPHOCYTES 2; PLATELET ESTIMATE NORMAL
[2016-08-25 02:51] VITALS: BP 147/66
== END 2016-08-25 02:53 | disposition home or self-care (01) ==
LOC: ER 21:02
DX: J18.9 Pneumonia, unspecified organism (principal); R59.1 Generalized enlarged lymph nodes; I51.9 Heart disease, unspecified; Z87.891 Personal history of nicotine dependence; Z79.899 Other long term (current) drug therapy
CPT/HCPCS: 36415; 71275; 74174; 80053; 81003; 83605; 84484; 85025; 85610; 87040; 93005; 96360; 96361; 99285; A4216; J7030; Q9967

== ENCOUNTER → 2016-11-09 | Outpatient (CLI) | payer MEDICARE, MEDICAID ==
[~2016-11-09] MED LIST changes: -IOHEXOL-350 100 ML BOTTLE ONE; -SODIUM CHLORIDE 0.9% 10ML VIAL ONE
== END | disposition home or self-care (01) ==
LOC: MRI 08:08
PROVIDERS: ATTEND Neurological Surgery
DX: M47.812 Spondylosis without myelopathy or radiculopathy, cervical region (principal); M48.02 Spinal stenosis, cervical region; M47.816 Spondylosis without myelopathy or radiculopathy, lumbar region; M48.06 Spinal stenosis, lumbar region; M41.86 Other forms of scoliosis, lumbar region
CPT/HCPCS: 72141; 72148

== ENCOUNTER 2018-03-14 10:47 | Inpatient (IN) | payer MEDICARE, MEDICAID ==
[~2018-03-14] VITALS: Ht 195.6 cm; Wt 101.6 kg
[2018-03-14 12:29] LABS: BASOPHILS % 0.5 % (0.0-2.0); EOSINOPHILS % 1.7 % (0.0-5.0); HEMATOCRIT. 40.3 % (42.0-52.0); HEMOGLOBIN. 13.6 g/dL (14.0-18.0); LYMPHOCYTES % 19.7 % (20.0-50.0); MEAN CORPUSCULAR HEMOGLOBIN 31.6 pg (28.0-32.0); MEAN CORPUSCULAR VOLUME 93.9 fL (80.0-94.0); MEAN PLATELET VOLUME 7.8 fl (7.4-10.4); MONOCYTES % 5.8 % (2.0-8.0); NEUTROPHILS % 72.3 % (40.0-76.0); PLATELET 255 x1000/uL (130-400); RED BLOOD CELL COUNT 4.29 mill/uL (4.7-6.1); RED CELL DISTRIBUTION WIDTH 15.7 % (11.6-14.6)
[2018-03-14 12:35] LABS: CHLORIDE 104 mEq/L (98-107)
[2018-03-14 13:05] LABS: CLARITY URINE CLEAR (CLEAR); COLOR URINE YELLOW (YELLOW); KETONES URINE TRACE (NEGATIVE); LEUKOCYTE ESTERASE URINE NEGATIVE (NEGATIVE); NITRITE URINE NEGATIVE (NEGATIVE); OCCULT BLOOD URINE NEGATIVE (NEGATIVE); PH URINE 5.5 (4.5-8.0); PROTEIN URINE NEGATIVE (NEGATIVE); SPECIFIC GRAVITY URINE 1.023 (1.005-1.030)
[2018-03-14] MEDS ORDERED: IOHEXOL-350 100 ML BOTTLE ONE (13:39)
[2018-03-14] MEDS ORDERED: SODIUM CHLORIDE 0.9% 1,000 ML IV ONE (14:19)
[2018-03-14] MEDS ORDERED: ALBUTEROL (0.083%) 2.5MG/3ML NEB HHN NR (14:19)
[2018-03-14] MEDS ORDERED: METHYLPREDNISOLONE SOD SUCC 125 MG/2 ML VIAL IV NR (14:19)
[2018-03-14] MEDS ORDERED: IPRATROPIUM BROMIDE (0.02%) 0.5MG/2.5ML NEB HHN NR (14:19)
[2018-03-14] MEDS ORDERED: VANCOMYCIN 1 G PREMIX 200 ML IV NR (14:30)
[2018-03-14] MEDS ORDERED: FUROSEMIDE 40MG/4ML VIAL IVP NR (14:30)
[2018-03-14] MEDS ORDERED: LEVOFLOXACIN 750MG PREMIX 150 ML IV NR (14:30)
[2018-03-14] MEDS ORDERED: PIPERACILLIN/TAZ 3.375G PREMIX 50 ML IV NR (14:30)
[2018-03-14 14:37] LABS: INR 1.2; PROTHROMBIN TIME 11.9 sec (9.1-11.1)
[2018-03-14 17:00] VITALS: BP 110/71
[2018-03-14] MEDS ORDERED: LORAZEPAM 2MG/ML CPJ IV PRN (18:15)
[2018-03-14] MEDS ORDERED: ONDANSETRON HCL 4MG/2ML INJ IV PRN (18:15)
[2018-03-14] MEDS ORDERED: MAGNESIUM/ALUMINUM HYDROXIDE/SIMETHICONE 30ML UDC PO PRN (18:15)
[2018-03-14] MEDS ORDERED: DIPHENHYDRAMINE 50MG/ML VIAL IV PRN (18:15)
[2018-03-14] MEDS ORDERED: HYDROCODONE/ACETAMINOPHEN 10/325MG TABLET PO PRN (18:15)
[2018-03-14] MEDS ORDERED: IPRATROPIUM/ALBUTEROL 0.5-3(2.5)MG/3ML NEB INH PRN (18:15)
[2018-03-14] MEDS ORDERED: HYDROMORPHONE HCL/PF 2MG/ML CPJ IV PRN (18:15)
[2018-03-14] MEDS ORDERED: GUAIFENESIN 200MG/10ML SUGAR FREE UDC PO PRN (18:15)
[2018-03-14] MEDS ORDERED: HYDRALAZINE 20MG/ML VIAL IV PRN (18:15)
[2018-03-14] MEDS ORDERED: VANCOMYCIN 1 G PREMIX 200 ML IV SCH (18:15)
[2018-03-14] MEDS ORDERED: CLONIDINE 0.1MG TABLET PO PRN (18:15)
[2018-03-14 18:51] VITALS: BP 110/71
[2018-03-14] MEDS ORDERED: ENOXAPARIN 40MG/0.4ML SYR SUBCUT SCH (21:00)
[2018-03-14] MEDS ORDERED: VANCOMYCIN 2,000 MG in DEXT 5% WATER 500 ML IV NR (21:00)
[2018-03-14] MEDS ORDERED: ERYTHROMYCIN BASE 0.5% OPHTH OINT 3.5GM BOTHEYE ONE (22:00)
[2018-03-14] MEDS: PIPERACILLIN/TAZ 3.375G PREMIX 50 ML IV SCH (22:27)
[2018-03-14] MEDS: SODIUM CHLORIDE 0.9% INJ 3ML FLUSH IVF SCH (22:29)
[2018-03-15] VITALS: BP 110/73
[2018-03-15 01:19] LABS: CREATINE KINASE 100 IU/L (39-308)
[2018-03-15 01:25] LABS: CREATINE KINASE MB FRACTION 1.7 ng/mL (0.5-3.6)
[2018-03-15 04:00] VITALS: BP 111/71
[2018-03-15] MEDS: PIPERACILLIN/TAZ 3.375G PREMIX 50 ML IV SCH ×3 (06:30→21:41)
[2018-03-15] MEDS: SODIUM CHLORIDE 0.9% INJ 3ML FLUSH IVF SCH ×3 (06:33→21:43)
[2018-03-15 07:09] LABS: BASOPHILS % 0.2 % (0.0-2.0); HEMATOCRIT. 40.2 % (42.0-52.0); HEMOGLOBIN. 13.5 g/dL (14.0-18.0); LYMPHOCYTES % 10.9 % (20.0-50.0); MEAN CORPUSCULAR HEMOGLOBIN 31.3 pg (28.0-32.0); MONOCYTES % 1.9 % (2.0-8.0); PLATELET 268 x1000/uL (130-400); RED BLOOD CELL COUNT 4.32 mill/uL (4.7-6.1); RED CELL DISTRIBUTION WIDTH 15.2 % (11.6-14.6)
[2018-03-15 07:23] LABS: CHLORIDE 100 mEq/L (98-107)
[2018-03-15 07:32] LABS: CREATINE KINASE 99 IU/L (39-308)
[2018-03-15 07:34] LABS: CREATINE KINASE MB FRACTION 2.3 ng/mL (0.5-3.6)
[2018-03-15 08:00] VITALS: BP 111/70
[2018-03-15] MEDS ORDERED: VANCOMYCIN 1250MG in DEXTROSE 5% WATER 250ML IV SCH (09:00)
[2018-03-15] MEDS: FUROSEMIDE 40MG/4ML VIAL IV SCH (09:23)
[2018-03-15] MEDS: ASPIRIN 81MG EC TABLET PO SCH (09:24)
[2018-03-15 10:33] LABS: T4 FREE 0.88 ng/dL (0.76-1.46)
[2018-03-15 12:00] VITALS: BP 112/72
[2018-03-15] MEDS ORDERED: ATOR10TA69 MT (12:09)
[2018-03-15] MEDS ORDERED: OMEP40CA34 PO (12:09)
[2018-03-15] MEDS ORDERED: XAR15 MT (12:09)
[2018-03-15] MEDS ORDERED: TRAZ-213 MT (12:09)
[2018-03-15] MEDS ORDERED: AZEL205. BOTHNSTRLS (12:09)
[2018-03-15] MEDS ORDERED: TRAM150C25 MT (12:09)
[2018-03-15] MEDS ORDERED: PREG300C MT (12:09)
[2018-03-15] MEDS ORDERED: SERT20OR6 PO (12:09)
[2018-03-15] MEDS ORDERED: LEVOFLOXACIN 500MG PREMIX 100 ML IV SCH (15:00)
[2018-03-15] MEDS: IPRATROPIUM/ALBUTEROL 0.5-3(2.5)MG/3ML NEB HHN SCH ×3 (15:34→23:53)
[2018-03-15 16:00] VITALS: BP 109/69
[2018-03-15] MEDS ORDERED: AZELASTINE HCL BOTHNSTRLS SCH (17:00)
[2018-03-15] MEDS ORDERED: TRAMADOL HCL MT PRN (17:00)
[2018-03-15] MEDS ORDERED: MEDICATION NOT ON FORMULARY EA (Pregabalin (Lyrica) 1 CAP) MT SCH (17:00)
[2018-03-15] MEDS: PREGABALIN 75MG CAPSULE PO SCH (18:19)
[2018-03-15] MEDS: RIVAROXABAN 15 MG TABLET PO SCH (18:19)
[2018-03-15] MEDS: PREDNISOLONE ACETATE 1% OPHTH DROPS 1ML BOTHEYE SCH (18:19)
[2018-03-15] MEDS: BUDESONIDE 0.5MG/2ML NEB HHN SCH (19:50)
[2018-03-15 20:38] VITALS: BP 104/65
[2018-03-15] MEDS ORDERED: TRAZODONE HCL MT SCH (21:00)
[2018-03-15] MEDS ORDERED: METHYLPREDNISOLONE SOD SUCC 125 MG/2 ML VIAL IV SCH (21:00)
[2018-03-15] MEDS: NEO/POLYMYX B SULF/DEXAMETH OPHTH OINT 3.5GM BOTHEYE SCH (21:40)
[2018-03-15] MEDS: TRAZODONE HCL 100MG TABLET PO SCH (21:41)
[2018-03-15] MEDS: AZELASTINE HCL 137MCG/SPRAY NASAL PUMP BOTHNSTRLS SCH (21:41)
[2018-03-15] MEDS: GUAIFENESIN 600MG ER TABLET PO SCH (21:41)
[2018-03-15] MEDS: ATORVASTATIN CALCIUM 10MG TABLET PO SCH (21:42)
[2018-03-16] VITALS (7 sets, daily range): BP systolic 92–124; BP diastolic 45–76
[2018-03-16] MEDS: PREDNISOLONE ACETATE 1% OPHTH DROPS 1ML BOTHEYE SCH ×4 (00:16→18:03)
[2018-03-16] MEDS: IPRATROPIUM/ALBUTEROL 0.5-3(2.5)MG/3ML NEB HHN SCH ×3 (04:36→20:41)
[2018-03-16] MEDS: SODIUM CHLORIDE 0.9% INJ 3ML FLUSH IVF SCH ×3 (05:27→21:49)
[2018-03-16] MEDS: NEO/POLYMYX B SULF/DEXAMETH OPHTH OINT 3.5GM BOTHEYE SCH ×3 (05:27→21:50)
[2018-03-16] MEDS: PIPERACILLIN/TAZ 3.375G PREMIX 50 ML IV SCH ×3 (05:27→21:49)
[2018-03-16 07:33] LABS: CHLORIDE 99 mEq/L (98-107)
[2018-03-16] MEDS: OMEPRAZOLE 20MG CAPSULE EXTENDED RELEASE PO SCH (08:54)
[2018-03-16] MEDS: FUROSEMIDE 40MG/4ML VIAL IV SCH (08:54)
[2018-03-16] MEDS: ASPIRIN 81MG EC TABLET PO SCH (08:55)
[2018-03-16] MEDS: GUAIFENESIN 600MG ER TABLET PO SCH ×2 (08:55→21:49)
[2018-03-16] MEDS: PREGABALIN 75MG CAPSULE PO SCH ×2 (08:55→18:03)
[2018-03-16] MEDS: SERTRALINE HCL 50MG TABLET PO SCH (08:55)
[2018-03-16] MEDS: AZELASTINE HCL 137MCG/SPRAY NASAL PUMP BOTHNSTRLS SCH ×2 (08:56→18:03)
[2018-03-16] MEDS ORDERED: MEDICATION NOT ON FORMULARY EA (Omeprazole 40 MG) PO SCH (09:00)
[2018-03-16] MEDS ORDERED: SERTRALINE HCL 50 MG PO SCH (09:00)
[2018-03-16] MEDS: BUDESONIDE 0.5MG/2ML NEB HHN SCH ×2 (09:48→20:41)
[2018-03-16] MEDS ORDERED: DEXTROSE 50% WATER 50ML SYRINGE IV PRN (12:15)
[2018-03-16] MEDS: INSULIN LISPRO 100 UNITS/ML SUBCUT SCH ×3 (12:35→22:04)
[2018-03-16] MEDS: BLOOD SUGAR DIAGNOSTIC STRIP TEST SCH ×3 (12:36→21:50)
[2018-03-16] MEDS: INSULIN GLARGINE UD 100 UNITS/ML SYR SUBCUT SCH (14:38)
[2018-03-16] MEDS: RIVAROXABAN 15 MG TABLET PO SCH (18:03)
[2018-03-16] MEDS: ATORVASTATIN CALCIUM 10MG TABLET PO SCH (21:49)
[2018-03-16] MEDS: TRAZODONE HCL 100MG TABLET PO SCH (21:49)
[2018-03-17] VITALS: BP 111/63
[2018-03-17] MEDS: IPRATROPIUM/ALBUTEROL 0.5-3(2.5)MG/3ML NEB HHN SCH ×6 (00:33→19:58)
[2018-03-17] MEDS: PREDNISOLONE ACETATE 1% OPHTH DROPS 1ML BOTHEYE SCH ×4 (00:42→17:15)
[2018-03-17] MEDS: PIPERACILLIN/TAZ 3.375G PREMIX 50 ML IV SCH ×4 (03:46→21:01)
[2018-03-17 04:00] VITALS: BP 102/59
[2018-03-17] MEDS: SODIUM CHLORIDE 0.9% INJ 3ML FLUSH IVF SCH ×3 (06:26→22:00)
[2018-03-17] MEDS: BLOOD SUGAR DIAGNOSTIC STRIP TEST SCH ×4 (06:27→20:36)
[2018-03-17] MEDS: NEO/POLYMYX B SULF/DEXAMETH OPHTH OINT 3.5GM BOTHEYE SCH ×3 (06:27→22:00)
[2018-03-17] MEDS: OMEPRAZOLE 20MG CAPSULE EXTENDED RELEASE PO SCH (06:27)
[2018-03-17 07:43] VITALS: BP 117/67
[2018-03-17 08:17] LABS: BASOPHILS % 0.7 % (0.0-2.0); HEMATOCRIT. 38.6 % (42.0-52.0); LYMPHOCYTES % 21.3 % (20.0-50.0); MEAN CORPUSCULAR HEMOGLOBIN 31.5 pg (28.0-32.0); MEAN PLATELET VOLUME 7.9 fl (7.4-10.4); MONOCYTES % 7.9 % (2.0-8.0); NEUTROPHILS % 68.1 % (40.0-76.0); PLATELET 257 x1000/uL (130-400); RED BLOOD CELL COUNT 4.11 mill/uL (4.7-6.1); RED CELL DISTRIBUTION WIDTH 15.5 % (11.6-14.6)
[2018-03-17 08:36] LABS: CHLORIDE 101 mEq/L (98-107)
[2018-03-17] MEDS: BUDESONIDE 0.5MG/2ML NEB HHN SCH ×2 (08:40→19:58)
[2018-03-17] MEDS: AZELASTINE HCL 137MCG/SPRAY NASAL PUMP BOTHNSTRLS SCH ×2 (08:59→17:15)
[2018-03-17] MEDS: GUAIFENESIN 600MG ER TABLET PO SCH ×2 (08:59→21:21)
[2018-03-17] MEDS: SERTRALINE HCL 50MG TABLET PO SCH (08:59)
[2018-03-17] MEDS: PREGABALIN 75MG CAPSULE PO SCH ×2 (08:59→17:15)
[2018-03-17] MEDS: ASPIRIN 81MG EC TABLET PO SCH (08:59)
[2018-03-17] MEDS: FUROSEMIDE 40MG/4ML VIAL IV SCH (08:59)
[2018-03-17] MEDS: INSULIN LISPRO 100 UNITS/ML SUBCUT SCH ×4 (09:00→20:56)
[2018-03-17] MEDS: INSULIN GLARGINE UD 100 UNITS/ML SYR SUBCUT SCH (09:01)
[2018-03-17 11:53] VITALS: BP 110/63
[2018-03-17] MEDS: DOCUSATE SODIUM 100MG CAPSULE PO PRN ×2 (12:00→21:00)
[2018-03-17] MEDS: CHLORHEXIDINE GLUCONATE 0.12% ORAL MOUTHWASH SSP SCH ×2 (13:16→17:16)
[2018-03-17 16:00] VITALS: BP 97/69
[2018-03-17] MEDS: RIVAROXABAN 20 MG TABLET PO SCH (17:15)
[2018-03-17] MEDS: DIGOXIN 125MCG TABLET PO SCH (17:15)
[2018-03-17 20:00] VITALS: BP 104/51
[2018-03-17] MEDS: TRAZODONE HCL 100MG TABLET PO SCH (20:31)
[2018-03-17] MEDS: ATORVASTATIN CALCIUM 10MG TABLET PO SCH (20:32)
[2018-03-17 21:37] LABS: BG BASE EXCESS 7.9 mmol/L (-2.0-2.0); BG CARBOXYHEMOGLOBIN 0.9 % (0.5-1.5); BG DEOXYHEMOGLOBIN 6.3 % (0.0-5.0); BG FRACTION INSPIRED OXYGEN 21; BG HCO3 ACT 32.4 mmol/L (22.0-26.0); BG METHEMOGLOBIN 0.3 % (0.0-1.5); BG OXYGEN SATURATION 93.6 % (92.0-98.5); BG OXYHEMOGLOBIN 92.5 % (94.0-97.0); BG PCO2 44.7 mmHg (35.0-45.0); BG PH 7.478 (7.350-7.450); BG PO2 68.2 mmHg (75.0-100.0); BG SAMPLE SITE LEFT RADIAL; BG TOTAL HEMOGLOBIN 13.4 g/dL (12.0-18.0); BG VENT MODE ROOM AIR
[2018-03-18] VITALS: BP 110/60
[2018-03-18] MEDS: IPRATROPIUM/ALBUTEROL 0.5-3(2.5)MG/3ML NEB HHN SCH ×6 (01:00→20:15)
[2018-03-18] MEDS: PIPERACILLIN/TAZ 3.375G PREMIX 50 ML IV SCH ×4 (02:31→20:51)
[2018-03-18 04:00] VITALS: BP 100/58
[2018-03-18] MEDS: INSULIN LISPRO 100 UNITS/ML SUBCUT SCH ×4 (07:50→20:55)
[2018-03-18 08:00] VITALS: BP 110/60
[2018-03-18] MEDS: BUDESONIDE 0.5MG/2ML NEB HHN SCH (08:16)
[2018-03-18] MEDS: PREGABALIN 75MG CAPSULE PO SCH ×2 (09:00→18:51)
[2018-03-18] MEDS: ASPIRIN 81MG EC TABLET PO SCH (09:00)
[2018-03-18] MEDS: FUROSEMIDE 40MG/4ML VIAL IV SCH (09:00)
[2018-03-18] MEDS: FAMOTIDINE 20MG TABLET PO SCH ×2 (09:00→20:52)
[2018-03-18] MEDS: GUAIFENESIN 600MG ER TABLET PO SCH ×2 (09:00→20:52)
[2018-03-18] MEDS: SERTRALINE HCL 50MG TABLET PO SCH (09:00)
[2018-03-18] MEDS: CHLORHEXIDINE GLUCONATE 0.12% ORAL MOUTHWASH SSP SCH ×2 (09:00→18:55)
[2018-03-18] MEDS: AZELASTINE HCL 137MCG/SPRAY NASAL PUMP BOTHNSTRLS SCH ×2 (09:00→18:54)
[2018-03-18] MEDS: INSULIN GLARGINE UD 100 UNITS/ML SYR SUBCUT SCH (10:00)
[2018-03-18 12:00] VITALS: BP 111/72
[2018-03-18] MEDS: PREDNISOLONE ACETATE 1% OPHTH DROPS 1ML BOTHEYE SCH ×4 (12:00→18:54)
[2018-03-18] MEDS: BLOOD SUGAR DIAGNOSTIC STRIP TEST SCH ×3 (12:20→20:52)
[2018-03-18] MEDS: NEO/POLYMYX B SULF/DEXAMETH OPHTH OINT 3.5GM BOTHEYE SCH ×3 (13:17→20:52)
[2018-03-18 16:00] VITALS: BP 147/81
[2018-03-18] MEDS: RIVAROXABAN 20 MG TABLET PO SCH (18:50)
[2018-03-18] MEDS: DIGOXIN 125MCG TABLET PO SCH (18:50)
[2018-03-18 20:00] VITALS: BP 107/66
[2018-03-18] MEDS: ATORVASTATIN CALCIUM 10MG TABLET PO SCH (20:52)
[2018-03-18] MEDS: TRAZODONE HCL 100MG TABLET PO SCH (20:52)
[2018-03-19] VITALS: BP 109/66
[2018-03-19] MEDS: IPRATROPIUM/ALBUTEROL 0.5-3(2.5)MG/3ML NEB HHN SCH ×5 (00:15→15:44)
[2018-03-19] MEDS: PREDNISOLONE ACETATE 1% OPHTH DROPS 1ML BOTHEYE SCH ×4 (00:19→17:56)
[2018-03-19] MEDS: SODIUM CHLORIDE 0.9% INJ 3ML FLUSH IVF SCH ×3 (00:20→14:08)
[2018-03-19 04:00] VITALS: BP 106/65
[2018-03-19] MEDS: PIPERACILLIN/TAZ 3.375G PREMIX 50 ML IV SCH ×3 (04:00→17:54)
[2018-03-19] MEDS: NEO/POLYMYX B SULF/DEXAMETH OPHTH OINT 3.5GM BOTHEYE SCH ×2 (05:07→14:03)
[2018-03-19] MEDS: BLOOD SUGAR DIAGNOSTIC STRIP TEST SCH ×3 (07:20→17:20)
[2018-03-19] MEDS: INSULIN LISPRO 100 UNITS/ML SUBCUT SCH ×3 (07:50→17:50)
[2018-03-19] MEDS: FUROSEMIDE 40MG/4ML VIAL IV SCH (10:41)
[2018-03-19] MEDS: FAMOTIDINE 20MG TABLET PO SCH (10:41)
[2018-03-19] MEDS: ASPIRIN 81MG EC TABLET PO SCH (10:41)
[2018-03-19] MEDS: PREGABALIN 75MG CAPSULE PO SCH ×2 (10:41→17:55)
[2018-03-19] MEDS: GUAIFENESIN 600MG ER TABLET PO SCH (10:42)
[2018-03-19] MEDS: AZELASTINE HCL 137MCG/SPRAY NASAL PUMP BOTHNSTRLS SCH ×2 (10:42→17:54)
[2018-03-19] MEDS: SERTRALINE HCL 50MG TABLET PO SCH (10:42)
[2018-03-19] MEDS: CHLORHEXIDINE GLUCONATE 0.12% ORAL MOUTHWASH SSP SCH ×2 (10:43→17:55)
[2018-03-19] MEDS: INSULIN GLARGINE UD 100 UNITS/ML SYR SUBCUT SCH (10:54)
[2018-03-19 12:02] VITALS: BP 107/65
[2018-03-19 15:51] VITALS: BP 106/58
[2018-03-19 16:50] VITALS: BP 106/58
[2018-03-19] MEDS: DIGOXIN 125MCG TABLET PO SCH (17:56)
[2018-03-19] MEDS: RIVAROXABAN 20 MG TABLET PO SCH (18:33)
== END 2018-03-19 18:50 | disposition home health service (06) | DRG 871 ==
LOC: ER 10:47 → 6WST 15:27 → EDBEDREQ 15:38 → EDBEDREQSVC 15:38 → ENRESERV 16:08
PROVIDERS: ADMIT Internal Medicine; ATTEND Internal Medicine
DX: A41.9 Sepsis, unspecified organism (principal); J96.00 Acute respiratory failure, unspecified whether with hypoxia or hypercapnia; J18.1 Lobar pneumonia, unspecified organism; C34.90 Malignant neoplasm of unspecified part of unspecified bronchus or lung; H02.002 Unspecified entropion of right lower eyelid; H02.005 Unspecified entropion of left lower eyelid; H02.004 Unspecified entropion of left upper eyelid; H02.001 Unspecified entropion of right upper eyelid; I27.20 Pulmonary hypertension, unspecified; I25.10 Atherosclerotic heart disease of native coronary artery without angina pectoris; E78.5 Hyperlipidemia, unspecified; R79.89 Other specified abnormal findings of blood chemistry; I48.91 Unspecified atrial fibrillation; H10.9 Unspecified conjunctivitis; I10 Essential (primary) hypertension; Z92.21 Personal history of antineoplastic chemotherapy; Z82.49 Family history of ischemic heart disease and other diseases of the circulatory system; Z79.899 Other long term (current) drug therapy; Z87.01 Personal history of pneumonia (recurrent)
CPT/HCPCS: 36415; 36600; 71045; 71275; 80048; 80061; 82375; 82550; 82553; 82805; 82962; 83036; 83605; 83880; 84145; 84439; 84443; 84484; 85379; 93005; 93306; 93970; 94618; 94640; 96365; 96366; 96375; 99285; J1650; J1815; J1940; J1956; J2543; J2930; J3370; J7040; J7060; J7611; J7620; J7626; Q9967